=== PATIENT | female | born 1985 | race Caucasian/White ===

== ENCOUNTER 2018-04-23 06:06 | Inpatient (IN) ==
[2018-04-23] MEDS ORDERED: Citric Acid/Sodium Citrate Liq 30 ML UDC PO SCH ×2 (06:30→08:15)
[2018-04-23] MEDS ORDERED: ceFAZolin 2 GM Premix Inj 2 GM/100 ML BAG IV.SIG SCH (07:00)
[2018-04-23 07:56] LABS: Baso % (Auto) 0.2 % (0.0-2.0); Eos % (Auto) 0.2 % (0.0-4.0); Hematocrit 39.1 % (35.0-46.0); Hemoglobin 13.9 gm/dL (11.6-15.3); Lymph # (Auto) 1.7 th/mm3 (1.0-4.8); Lymph % (Auto) 13.5 % (9.0-44.0); Mean Corpuscular HGB Conc 35.5 % (32.0-36.0); Mean Corpuscular Hemoglobin 32.3 pg (27.0-34.0); Mean Platelet Volume 9.3 fL (7.0-11.0); Mono % (Auto) 7.6 % (0.0-8.0); Neut # (Auto) 9.9 th/mm3 (1.8-7.7); Neut % (Auto) 78.5 % (16.0-70.0); Platelet Count 170 th/mm3 (150-450); Red Cell Distribution Width 13.5 % (11.6-17.2); White Blood Count 12.7 th/mm3 (4.0-11.0)
[2018-04-23] MEDS ORDERED: fentaNYL Citrate Inj 100 MCG/2 ML Ampul IV.PUSH PRN ×2 (08:06)
[2018-04-23] MEDS ORDERED: Naloxone Inj 0.4 MG/ML Vial IV.PUSH PRN ×2 (08:06→23:08)
[2018-04-23] MEDS ORDERED: Oxytocin 30 Units/500ml Premix 30 UNITS/500 ML BAG IV.SIG ONE (08:06)
[2018-04-23] MEDS ORDERED: Sodium Chlor 0.9% Inj 500 ML IV.SIG PRN (08:06)
[2018-04-23] MEDS ORDERED: Oxytocin 30 Units/500ml Premix 30 UNITS/500 ML BAG IV.SIG PRN (08:08)
[2018-04-23 08:10] LABS: Bacteria,Urine Few /hpf; Bilirubin,Urine Negative (Negative); Calcium Oxalate Crystals,Urine Rare /hpf; Glucose,Urine (UA) Negative (Negative); Leukocyte Esterase,Urine Negative (Negative); Mucus,Urine Many /lpf (Occasional); Nitrite,Urine Negative (Negative); Specific Gravity,Urine 1.023 (1.002-1.035); Squamous Epithelial Cell,Urine 7 /hpf (0-5)
[2018-04-23 08:11] LABS: Color,Urine Dark-Yellow (Yellw/Straw)
[2018-04-23 08:12] LABS: Clarity,Urine Slightly Cloudy (Clear)
--- NOTE | 2018-04-23 08:17 | P.HPOB ---
History of Present Illness Service: obstetrics Primary Care Physician: UNKNOWN History of Present Illness: 33 yo patient previous who is 39 weeks and breech. She comes today for external cephalic version. If successful we will induce labor if we fail she will need CS. Patient understands risks and questions were answered Weeks Gestation:: 39 Para: 1 : 2 - Inpatient Certification I certify that the inpatient services were ordered in accordance with Medicare regulations governing the order. This includes certification that hospital inpatient services are reasonable and necessary and in the case of services not specified as inpatient-only under 42 CFR 419.22(n), that they are appropriately provided as inpatient services in accordance to with the 2-midnight benchmark under 43 CFR 412.3(e) Estimated Total Length of Stay (Days): 2 Plans for Post Hospital Care: Home Review of Systems All other systems reviewed negative except as stated in HPI PMFSH - Medical / Surgical Hx Neg / Unobtainable Medical Problems Denied: Yes - Tobacco History Second Hand Smoke Exposure: No Tobacco Use In Past 30 Days: No Smoking Status: Never smoker Medications and Allergies Active Medications: Active Medications Citric Acid/Sodium Citrate (Sodium Citrate/Citric Acid Liq) 30 ml PO [facility] Stop: 04/27/18 06:29 Citric Acid/Sodium Citrate (Sodium Citrate/Citric Acid Liq) 30 ml PO [facility] Stop: 04/27/18 08:14 Fentanyl Citrate (Fentanyl Inj) 100 mcg IV.PUSH Q1H PRN PRN Reason: PAIN SCALE 6 TO 10 Fentanyl Citrate (Fentanyl Inj) 50 mcg IV.PUSH Q1H PRN PRN Reason: Pain Scale 3 - 5 Cefazolin/Sodium Chloride (Ancef 2 Gm Premix Inj) 2 gm in 100 mls @ 200 mls/hr IV.SIG KN[facility]AN DORETHA Stop: 04/23/18 14:00 Lactated Ringer's (Lr 1000 Ml Inj) 1,000 mls @ 150 mls/hr IV.CONT .Q6H40M DORETHA Lactated Ringer's (Lr 1000 Ml Inj) 1,000 mls @ 125 mls/hr IV.CONT .Q8H DORETHA Lactated Ringer's (Lr 1000 Ml Inj) 1,000 mls @ 3,000 mls/hr IV.SIG UNSCH PRN PRN Reason: compromise or epidural Sodium Chloride (Ns Inj) 500 mls @ 1,000 mls/hr IV.SIG UNSCH PRN PRN Reason: SEE LABEL COMMENTS Sodium Chloride (Ns Inj) 1,000 mls @ 100 mls/hr IV.CONT .Q10H PRN PRN Reason: SEE LABEL COMMENTS Oxytocin (Pitocin 30 Units/Ns 500 Ml Premix) 30 units in 500 mls @ 999 mls/hr IV.SIG BOLUS ONE Stop: 04/23/18 08:36 Oxytocin (Pitocin 30 Units/Ns 500 Ml Premix) 30 units in 500 mls @ 2 mls/hr IV.SIG TITRATE PRN; Protocol PRN Reason: For induction of labor Lidocaine HCl (Xylocaine 1% Inj) 0.1 ml I-DERMAL PRN PRN PRN Reason: For IV start Stop: 04/26/18 08:05 Lidocaine HCl (Xylocaine 1% Inj) 10 ml INFILTRATN PRN PRN PRN Reason: For episiotomy repair Stop: 04/25/18 08:05 Mineral Oil (Muri-Lube Oil) 10 ml TOPICAL PRN PRN PRN Reason: PRN perineal massage Naloxone HCl (Narcan Inj) 0.1 mg IV.PUSH Q2M PRN PRN Reason: for opiate reversal Allergies Allergy/AdvReac Type Severity Reaction Status Date / Time erythromycin base Allergy Severe DYSPNEA Verified 04/23/18 07:50 Home Medications Medication Instructions Recorded Confirmed Type [id number] acid 1 tab PO DAILY 04/23/18 04/23/18 History [ Multi] Exam Vital signs: Vital Signs 04/23/18 06:47 04/23/18 06:51 Temperature 97.9 F Pulse Rate 87 Respiratory Rate 18 Blood Pressure 120/77 Intake & Output 04/22/18 04/23/18 04/23/18 18:59 06:59 18:59 Weight 81.647 kg Other: Weight On Admission 81.647 kg - Constitutional no acute distress - Routine HEENT Exam Head: Present: normocephalic ENT: Present: mucous membranes moist - Routine Neck Exam Present: supple, full ROM - Routine Respiratory Exam Present: CTA bilaterally - Routine Cardiovascular Exam Present: RRR - Routine Abdominal Exam Present: soft, normoactive bowel sounds - Routine Extremities Exam Present: full ROM - Routine Skin Exam Present: intact - Additional findings Additional findings: cervix 1 cm, breech by US Results - Labs CBC & Chem 7: 04/23/18 07:05 Labs: Laboratory Results - last 24 hr 04/23/18 07:05 WBC 12.7 H RBC 4.30 Hgb 13.9 Hct 39.1 MCV 91.0 MCH 32.3 MCHC 35.5 RDW 13.5 Plt Count 170 MPV 9.3 Neut % (Auto) 78.5 H Lymph % (Auto) 13.5 [place] % (Auto) 7.6 Eos % (Auto) 0.2 Baso % (Auto) 0.2 Neut # (Auto) 9.9 H Lymph # (Auto) 1.7 [place] # (Auto) 1.0 H Eos # (Auto) 0.0 Baso # (Auto) 0.0 WBC Differential . Differential Comment Auto diff final Group B Strep: Negative Caprini VTE Risk Assessment Caprini VTE Risk Assessment: No/Low Risk (score <= 1) Caprini Risk Assessment Model: Point Value = 1 Point Value = 2 Point Value = 3 Point Value = 5 Age 41-60 Minor surgery BMI > 25 kg/m2 Swollen legs Varicose veins or History of unexplained or recurrent spontaneous Oral contraceptives or hormone replacement Sepsis (< 1 month) Serious lung disease, including pneumonia (< 1 month) Abnormal pulmonary function Acute myocardial infarction Congestive heart failure (< 1 month) History of inflammatory bowel disease Medical patient at bed rest Age 61-74 Arthroscopic surgery Major open surgery (> 45 min) Laparoscopic surgery (> 45 min) Malignancy Confined to bed (> 72 hours) Immobilizing plaster cast Central venous access Age >= 75 History of VTE Family history of VTE Factor V Leiden Prothrombin [id number] Lupus anticoagulant Anticardiolipin antibodies Elevated serum homocysteine Heparin-induced thrombocytopenia Other congenital or acquired thrombophilia Stroke (< 1 month) Elective arthroplasty Hip, pelvis, or leg fracture Acute spinal cord injury (< 1 month) Prophylaxis Regimen: Total Risk Factor Score Risk Level Prophylaxis Regimen 0-1 Low Early ambulation 2 Moderate Order ONE of the following: *Sequential Compression Device (SCD) *Heparin 5000 units SQ BID 3-4 Higher Order ONE of the following medications: *Heparin 5000 units SQ TID *Enoxaparin/Lovenox 40 mg SQ daily (WT < 150 kg, CrCl > 30 mL/min) *Enoxaparin/Lovenox 30 mg SQ daily (WT < 150 kg, CrCl > 10-29 mL/min) *Enoxaparin/Lovenox 30 mg SQ BID (WT < 150 kg, CrCl > 30 mL/min) AND/OR *Sequential Compression Device (SCD) 5 or more Highest Order ONE of the following medications: *Heparin 5000 units SQ TID (Preferred with Epidurals) *Enoxaparin/Lovenox 40 mg SQ daily (WT < 150 kg, CrCl > 30 mL/min) *Enoxaparin/Lovenox 30 mg SQ daily (WT < 150 kg, CrCl > 10-29 mL/min) *Enoxaparin/Lovenox 30 mg SQ BID (WT < 150 kg, CrCl > 30 mL/min) AND *Sequential Compression Device (SCD) Assessment and Plan - Diagnosis (1) Breech malpresentation successfully converted to cephalic presentation Code(s): O32.1XX0 - Maternal care for breech presentation, not applicable or unspecified Status: Acute (2) 39 weeks gestation of Code(s): Z3A.39 - 39 weeks gestation of Status: Acute - Plan induction if successful version
--- NOTE | 2018-04-23 08:19 | P.OP ---
- Preoperative Diagnosis (1) Breech malpresentation successfully converted to cephalic presentation - Postoperative Diagnosis (1) Breech malpresentation successfully converted to cephalic presentation Date of procedure: 04/23/18 Procedure: external cephalic version Anesthesia: none Surgeon: Nuno Barrett MD Pathology: none sent
--- NOTE | 2018-04-23 08:47 | MP ---
cc: Nuno Barrett MD DATE OF OPERATION: 04/23/2018 PROCEDURE: External cephalic version. PREOPERATIVE DIAGNOSIS: Breech presentation. POSTOPERATIVE DIAGNOSES: Breech presentation with successful version of breech infant. ESTIMATED BLOOD LOSS: None. ANESTHESIA: None. SPECIMENS: None. PROCEDURE IN DETAIL: After informed consent, all questions were answered for the patient and the patient's . The patient was in the hospital on the monitor. The heart tracing was very reassuring. The patient had an ultrasound which did confirm a back to the maternal right with the head near the xiphoid and the buttocks in the pelvis beverly breech presentation. The patient had normal fluid and normal placenta. A version was performed by pressing gently on the baby's head, lifting the buttocks up. After the first attempt, which lasted 20 seconds, we had the baby in the transverse presentation. At this point, we continued our version with the infant rotating to the mother's left and the successfully verted. heart rate monitored by ultrasound was normal throughout the entire procedure. The patient was placed back on the monitor. At the patient's request, the patient will be induced. She is 39 weeks. Cervix is 1 cm, 60% effaced, and -2. The patient is aware of risks, benefits, and alternatives of induction. Nuno Barrett MD JWM/lee , 08:21 AM , 08:28 AM
[2018-04-23 08:58] LABS: Amphetamine Urine With Conf Neg (Neg); Benzodiazepine Urine With Conf Neg (Neg)
--- NOTE | 2018-04-23 13:02 | P.OBLABOR ---
Subjective Interval history: version complete and Pt lissy on pitocin, Ok for AROM Objective Vital Signs: Vital Signs - 8 hr 04/23/18 06:47 04/23/18 06:51 04/23/18 08:18 Temperature 97.9 F Pulse Rate 87 83 Respiratory Rate 18 Blood Pressure 120/77 123/78 04/23/18 08:30 04/23/18 09:18 04/23/18 10:00 Temperature 97.9 F Pulse Rate 79 Respiratory Rate 18 18 18 Blood Pressure 123/81 04/23/18 10:03 04/23/18 10:34 04/23/18 11:00 Temperature Pulse Rate 78 79 82 Respiratory Rate Blood Pressure 126/82 120/76 114/82 04/23/18 11:30 04/23/18 12:01 04/23/18 12:45 Temperature Pulse Rate 79 79 79 Respiratory Rate 16 Blood Pressure 122/78 121/80 132/87 Objective: Pelvic Exam: Cervix: [-] Dilatation: 1-2 Effacement: 70 Station: [-] Presentation: [-] Membranes: AROM MSF moderate Uterine Contractions: Q2 FHT's: Category: 1 Baseline: [-] Reactive: [-] Variability: [-] Decels: [-] Patient Started Active Labor: Yes Active Labor Start Date: 04/23/18 Active Labor Start Time: 08:00 Medical Induction of Labor: No Artificial Rupture of Membrane: Yes Artificial ROM Date: 04/23/18 Artificial ROM Time: 13:01 Assessment and Plan - Diagnosis (1) Breech malpresentation successfully converted to cephalic presentation Code(s): O32.1XX0 - Maternal care for breech presentation, not applicable or unspecified Status: Acute (2) 39 weeks gestation of Code(s): Z3A.39 - 39 weeks gestation of Status: Acute - Plan induction if successful version
[2018-04-23] MEDS ORDERED: fentaNYL 2MCG-Bupiv 0.125% Epi 150 ML EPIDURAL ONE (15:44)
[2018-04-23] MEDS ORDERED: Lidocaaine 1.5%/Epinephrine 1:200,000 PF Inj 5 ML Amp ONE (15:44)
[2018-04-23] MEDS ORDERED: Lidocaine PF 1% Inj 10 ML Amp ONE (15:45)
[2018-04-23] MEDS ORDERED: Diphtheria/Tetanus/Pertussis Vaccine Inj 0.5 ML Syringe IM ONE (16:00)
[2018-04-23] MEDS ORDERED: Measles/Mumps/Rubella Vaccine Inj 0.5 ML Vial SQ ONE (16:00)
[2018-04-23] MEDS ORDERED: fentaNYL Citrate Inj 100 MCG/2 ML Ampul EPIDURAL ONE (16:15)
[2018-04-23] MEDS ORDERED: fentaNYL 2MCG-Bupiv 0.125% Epi 150 ML EPIDURAL PRN (16:15)
[2018-04-23] MEDS: Sod Chloride 0.9% Inj 1,000 ML IV.CONT PRN ×2 (19:31→21:11)
[2018-04-23] MEDS ORDERED: Lidocaine 1% Inj 50 ML Vial ONE (22:08)
[2018-04-23] MEDS ORDERED: Zolpidem Tartrate 5 MG Tablet PO PRN (23:08)
[2018-04-23] MEDS ORDERED: Witch Hazel 50%/Glyderin 12.5% 40 Pad Jar RECTAL PRN (23:08)
[2018-04-23] MEDS ORDERED: Oxytocin 30 Units/500ml Premix 30 UNITS/500 ML BAG IV.CONT PRN (23:08)
[2018-04-23] MEDS ORDERED: Bisacodyl 10 MG Supp RECTAL PRN (23:08)
[2018-04-23] MEDS ORDERED: Acetaminophen 325 MG Tablet PO PRN (23:08)
[2018-04-23] MEDS ORDERED: Benzocaine 20% Top Spray 60 ML Can TOPICAL PRN (23:08)
--- NOTE | 2018-04-23 23:12 | P.OBDELI ---
Weeks Gestation: 39 Patient Started Active Labor: Yes Active Labor Start Date: 04/23/18 Active Labor Start Time: 08:00 Medical Induction of Labor: No Artificial Rupture of Membrane: Yes Artificial ROM Date: 04/23/18 Artificial ROM Time: 12:30 Anesthesia: Epidural Episiotomy: none Vaginal Delivery: Spontaneous Presentation: Occiput anterior Nuchal Cord: None Delayed Cord Clamping (45 sec): Yes Placenta: Spontaneous delivery, 3 vessel cord Laceration: 1 deg (left labial) Repair: Chromic interrupted Estimated blood loss (mL): 300 Infant: Female, Single
[2018-04-24] MEDS: Senna/Docusate Sodium 8.6/50 MG Tablet PO SCH ×2 (08:02→21:38)
--- NOTE | 2018-04-24 09:03 | P.PNOB ---
Subjective Post day: 1 Interval history: post doing well Objective Vital Signs/I&O: Vital Signs 04/23/18 09:18 04/23/18 10:00 04/23/18 10:03 Temperature 97.9 F Pulse Rate 79 78 Respiratory Rate 18 18 Blood Pressure 123/81 126/82 04/23/18 10:34 04/23/18 11:00 04/23/18 11:30 Temperature Pulse Rate 79 82 79 Respiratory Rate Blood Pressure 120/76 114/82 122/78 04/23/18 11:45 04/23/18 12:01 04/23/18 12:45 Temperature 98.0 F Pulse Rate 79 79 Respiratory Rate 16 16 Blood Pressure 121/80 132/87 04/23/18 13:31 04/23/18 14:00 04/23/18 14:30 Temperature Pulse Rate 82 82 77 Respiratory Rate Blood Pressure 131/86 120/83 118/72 04/23/18 14:45 04/23/18 15:01 04/23/18 15:31 Temperature 98.6 F Pulse Rate 88 87 Respiratory Rate 16 Blood Pressure 116/88 137/84 04/23/18 15:52 04/23/18 15:54 04/23/18 15:58 Temperature Pulse Rate 92 H 85 98 H Respiratory Rate Blood Pressure 139/76 124/74 133/61 04/23/18 16:20 04/23/18 16:30 04/23/18 16:35 Temperature Pulse Rate 88 74 73 Respiratory Rate 16 Blood Pressure 126/75 112/61 04/23/18 16:40 04/23/18 17:05 04/23/18 17:10 Temperature Pulse Rate 72 71 70 Respiratory Rate Blood Pressure 111/60 111/61 04/23/18 17:20 04/23/18 17:25 04/23/18 17:40 Temperature Pulse Rate 79 74 77 Respiratory Rate Blood Pressure 109/66 111/60 04/23/18 18:25 04/23/18 18:35 04/23/18 18:40 Temperature Pulse Rate 75 71 79 Respiratory Rate Blood Pressure 110/67 115/65 120/69 04/23/18 18:55 04/23/18 19:05 04/23/18 19:10 Temperature Pulse Rate 76 90 83 Respiratory Rate Blood Pressure 101/72 125/77 04/23/18 19:25 04/23/18 19:30 04/23/18 20:00 Temperature 99.0 F Pulse Rate 74 74 76 Respiratory Rate 18 18 Blood Pressure 121/72 121/69 118/69 04/23/18 20:30 04/23/18 20:50 04/23/18 21:06 Temperature 99.1 F Pulse Rate 79 75 Respiratory Rate 18 18 Blood Pressure 112/63 115/70 04/23/18 21:20 04/23/18 21:21 04/23/18 21:50 Temperature Pulse Rate 88 79 Respiratory Rate 18 Blood Pressure 119/68 120/66 04/23/18 22:00 04/23/18 22:30 04/23/18 23:01 Temperature Pulse Rate 82 96 H 100 H Respiratory Rate 18 20 18 Blood Pressure 131/76 128/52 L 04/23/18 23:15 04/23/18 23:16 04/23/18 23:45 Temperature Pulse Rate 93 H 89 Respiratory Rate 18 18 18 Blood Pressure 130/70 127/64 04/24/18 00:00 04/24/18 00:15 04/24/18 00:21 Temperature Pulse Rate 269 H 90 Respiratory Rate 18 18 Blood Pressure 145/91 H 121/71 04/24/18 00:45 04/24/18 01:31 04/24/18 07:55 Temperature 98.8 F 98.4 F Pulse Rate 92 H 76 64 Respiratory Rate 0 L 17 20 Blood Pressure 141/87 H 112/67 127/77 Intake & Output 04/23/18 04/24/18 04/24/18 18:59 06:59 18:59 Intake Total 1000 / 1000 1800 / 1800 Balance 1000 / 1000 1800 / 1800 Weight 81.647 kg Intake: IV 1000 / 1000 1800 / 1800 LR 1000 mL Inj 1,000 ML @ 125 1000 / 1000 1000 / 1000 mls/hr IV.CONT .Q8H DORETHA Rx#: [id number] NS Inj 1,000 ML @ 100 mls/hr IV 800 / 800 .CONT .Q10H PRN Rx#:[id number] Other: Weight On Admission 81.647 kg Result Diagrams: 04/23/18 07:05 Objective Remarks: GENERAL: Well-nourished, well-developed patient. ABDOMEN/GI: Abdomen soft, non-tender. Fundus: Firm, non-tender at umbilicus. GENITOURINARY: Light to moderate bleeding. EXTREMITIES: No cyanosis or edema, non-tender, without signs of DVT. Medications and IVs: Active Medications Acetaminophen (Tylenol) 650 mg PO Q4H PRN PRN Reason: PAIN SCALE 1 TO 2 Al Hydroxide/Mg Hydroxide (Milk Of Magnesia Liq) 30 ml PO Q12H PRN PRN Reason: Mild Constipation Benzocaine (Americaine 20% Top [place]) 1 spray TOPICAL Q4H PRN PRN Reason: For Perineum Discomfort Bisacodyl (Dulcolax Supp) 10 mg RECTAL DAILY PRN PRN Reason: SEVERE CONSITIPATION Oxytocin (Pitocin 30 Units/Ns 500 Ml Premix) 30 units in 500 mls @ 100 mls/hr IV.CONT UNSCH PRN PRN Reason: Heavy bleeding Ibuprofen (Motrin) 800 mg PO Q8H PRN PRN Reason: For Cramping Last Admin: 04/24/18 08:02 Dose: 800 mg Lactulose (Lactulose Liq) 30 ml PO DAILY PRN PRN Reason: SEVERE CONSITIPATION Miscellaneous Information (Misc Information) 1 each OTHER UNSCH PRN PRN Reason: SEE LABEL COMMENTS Stop: 04/24/18 16:15 Miscellaneous Information (Misc Information) 1 each OTHER UNSCH PRN PRN Reason: SEE LABEL COMMENTS Stop: 04/24/18 16:15 Naloxone HCl (Narcan Inj) 0.1 mg IV.PUSH Q2M PRN PRN Reason: for opiate reversal Ondansetron HCl (Zofran Odt) 4 mg PO Q6H PRN PRN Reason: NAUSEA OR VOMITING Oxycodone/Acetaminophen (Percocet 5/325 Mg) 1 tab PO Q4H PRN PRN Reason: PAIN SCALE 3 TO 5 Oxycodone/Acetaminophen (Percocet 5/325 Mg) 2 tab PO Q4H PRN PRN Reason: PAIN SCALE 6 TO 10 Senna/Docusate Sodium (Keturah-Colace) 1 tab PO BID DORETHA Last Admin: 04/24/18 08:02 Dose: 1 tab Sennosides (Senokot) 17.2 mg PO Q12H PRN PRN Reason: Moderate Constipation Sodium Chloride (Ns Flush) 2 ml IV.FLUSH BID DORETHA Sodium Chloride (Ns Flush) 2 ml IV.FLUSH PRN PRN PRN Reason: FLUSH AFTER USING IV ACCESS Witch Nadine/Glycerin (Tucks Pads) 1 applicatio RECTAL QID PRN PRN Reason: HEMORRHOIDS Zolpidem Tartrate (Ambien) 5 mg PO HS PRN PRN Reason: SLEEP Assessment and Plan - Diagnosis (1) Breech malpresentation successfully converted to cephalic presentation Code(s): O32.1XX0 - Maternal care for breech presentation, not applicable or unspecified Status: Acute (2) 39 weeks gestation of Code(s): Z3A.39 - 39 weeks gestation of Status: Acute - Plan induction if successful version
[2018-04-24 20:33] VITALS: RESP 18
[2018-04-25 07:57] VITALS: BP 111/61; PULSE 74
[2018-04-25 07:58] VITALS: TEMP 98.1
--- NOTE | 2018-04-25 09:00 | P.PNOB ---
Subjective Post day: 2 Interval history: dc home today PPD #2 after version and Objective Vital Signs/I&O: Vital Signs 04/24/18 20:00 04/25/18 07:56 Temperature 97.6 F 98.1 F Pulse Rate 64 74 Respiratory Rate 18 18 Blood Pressure 101/61 111/61 Result Diagrams: 04/23/18 07:05 Objective Remarks: GENERAL: Well-nourished, well-developed patient. . ABDOMEN/GI: Abdomen soft, non-tender. Fundus: Firm, non-tender at umbilicus. GENITOURINARY: Light to moderate bleeding. EXTREMITIES: No cyanosis or edema, non-tender, without signs of DVT. Medications and IVs: Active Medications Acetaminophen (Tylenol) 650 mg PO Q4H PRN PRN Reason: PAIN SCALE 1 TO 2 Last Admin: 04/25/18 04:34 Dose: 650 mg Al Hydroxide/Mg Hydroxide (Milk Of Magnesia Liq) 30 ml PO Q12H PRN PRN Reason: Mild Constipation Benzocaine (Americaine 20% Top [place]) 1 spray TOPICAL Q4H PRN PRN Reason: For Perineum Discomfort Bisacodyl (Dulcolax Supp) 10 mg RECTAL DAILY PRN PRN Reason: SEVERE CONSITIPATION Oxytocin (Pitocin 30 Units/Ns 500 Ml Premix) 30 units in 500 mls @ 100 mls/hr IV.CONT UNSCH PRN PRN Reason: Heavy bleeding Ibuprofen (Motrin) 800 mg PO Q8H PRN PRN Reason: For Cramping Last Admin: 04/25/18 00:18 Dose: 800 mg Lactulose (Lactulose Liq) 30 ml PO DAILY PRN PRN Reason: SEVERE CONSITIPATION Naloxone HCl (Narcan Inj) 0.1 mg IV.PUSH Q2M PRN PRN Reason: for opiate reversal Ondansetron HCl (Zofran Odt) 4 mg PO Q6H PRN PRN Reason: NAUSEA OR VOMITING Oxycodone/Acetaminophen (Percocet 5/325 Mg) 1 tab PO Q4H PRN PRN Reason: PAIN SCALE 3 TO 5 Oxycodone/Acetaminophen (Percocet 5/325 Mg) 2 tab PO Q4H PRN PRN Reason: PAIN SCALE 6 TO 10 Senna/Docusate Sodium (Keturah-Colace) 1 tab PO BID DORETHA Last Admin: 04/24/18 21:38 Dose: Not Given Sennosides (Senokot) 17.2 mg PO Q12H PRN PRN Reason: Moderate Constipation Sodium Chloride (Ns Flush) 2 ml IV.FLUSH BID [facility] Last Admin: 04/24/18 21:38 Dose: Not Given Sodium Chloride (Ns Flush) 2 ml IV.FLUSH PRN PRN PRN Reason: FLUSH AFTER USING IV ACCESS Witch Nadine/Glycerin (Tucks Pads) 1 applicatio RECTAL QID PRN PRN Reason: HEMORRHOIDS Last Admin: 04/24/18 10:36 Dose: 1 applicatio Zolpidem Tartrate (Ambien) 5 mg PO HS PRN PRN Reason: SLEEP Assessment and Plan - Diagnosis (1) Breech malpresentation successfully converted to cephalic presentation Code(s): O32.1XX0 - Maternal care for breech presentation, not applicable or unspecified Status: Acute (2) 39 weeks gestation of Code(s): Z3A.39 - 39 weeks gestation of Status: Acute (3) Spontaneous vaginal delivery Code(s): O80 - Encounter for full-term uncomplicated delivery Status: Acute - Plan induction if successful version
--- NOTE | 2018-04-25 09:05 | P.DS ---
Date of admission: 04/23/18 06:06 Primary care physician: UNKNOWN Brief History from admission: 33 yo patient previous who is 39 weeks and breech. She comes today for external cephalic version. If successful we will induce labor if we fail she will need CS. Patient understands risks and questions were answered, Had and did well 2 days PP DS: Diagnosis - Discharge Diagnosis (1) Breech malpresentation successfully converted to cephalic presentation Status: Acute (2) 39 weeks gestation of Status: Acute (3) Spontaneous vaginal delivery Status: Acute DS: Medications - Discharge Medications Prescriptions: oxycodone-acetaminophen 2 tab PO Q4H PRN 3 Days #10 tab PRN Reason: Pain Scale 6 To 10 DS: Summary Hospital Course: patioent had version delivered same day and DC home ppd#2 - Time Spent with Patient Total time spent providing and/or coordinating discharge services: Less than 30 minutes Exam Vital signs: Vital Signs 04/24/18 20:00 04/25/18 07:56 Temperature 97.6 F 98.1 F Pulse Rate 64 74 Respiratory Rate 18 18 Blood Pressure 101/61 111/61 - Constitutional no acute distress - Routine Respiratory Exam Present: CTA bilaterally - Routine Cardiovascular Exam Present: RRR - Routine Abdominal Exam Present: soft, normoactive bowel sounds Results Procedures completed during hospitalization: version and Discharge Plan - Discharge Disposition Patient Disposition: 01 Discharge Home - Discharge Condition Condition: Good - Discharge Order Discharge Orders: Discharge Order (Routine); Ordered 04/25/18 Ordered By: Nuno Barrett - Physicians Team Primary Care Provider: UNKNOWN, Attending Provider: Nuno Barrett - Rxs /Orders / Referrals /Forms Prescriptions: New oxycodone-acetaminophen 5-325 mg Tablet 2 tab PO Q4H PRN (Reason: Pain Scale 6 To 10) 3 Days Qty: 10 RF: 0 Continue [id number] acid [ Multi] 27-800 mg-mcg Tablet 1 tab PO DAILY Discontinued cyanocobalamin (vitamin B-12) [Vitamin B-12] 1,000 mcg/mL Solution 1,000 mcg IM QMONTH Referrals: Nuno Barrett MD [Physician] - See Instructions UNKNOWN, [Primary Care Provider] - See Instructions - Discharge Instructions Patient Printed Instructions: (DC) - Post Discharge Care Plan Care Plan Goals: Congratulations on your new baby! We want your recovery to be russo and trouble free. Please Report the Following Symptoms to Your Doctor: -Temperature above 100.5 degrees -Unusual pain or calf pain -Increased vaginal bleeding -Painful or difficulty urinating -Feelings of extreme sadness or anxiety Goals to Promote Your Health * To prevent worsening of your condition and complications * To maintain your health at the optimal level Directions to Meet Your Goals Take your medications as prescribed Follow your dietary instruction Follow activity as directed Ensure plenty of rest for recovery Drink fluids for hydration Keep your appointments as scheduled Take your immunizations and boosters as scheduled If your symptoms worsen call your OB Physician, or go to an Urgent Care Center or Emergency Room Smoking is Dangerous to your health. Avoid second hand smoke Call the 24-hour crisis hotline for domestic abuse at
[2018-04-25] MEDS ORDERED: Diphtheria/Tetanus/Pertussis Vaccine Inj 0.5 ML Syringe IM ONE (13:15)
[2018-04-25] MEDS: Senna/Docusate Sodium 8.6/50 MG Tablet PO SCH (13:31)
== END 2018-04-25 14:25 | disposition home or self-care (01) ==
LOC: H2E 06:06 → H1EA 04-24 01:13
PROVIDERS: ADMIT Obstetrics & Gynecology; ATTEND Obstetrics & Gynecology